=== PATIENT | male | born 1950 | race Caucasian/White ===

== ENCOUNTER 2017-02-03 21:39 | Inpatient (IN) | payer BC, MEDICARE ==
[~2017-02-03] VITALS: Ht 177.8 cm; Wt 90.7 kg
[2017-02-03 21:39] VITALS: BP 150/101
[2017-02-03 22:17] VITALS: BP 140/93
[2017-02-03] MEDS ORDERED: LISINOPRIL5 MG ORAL (23:04)
[2017-02-03] MEDS ORDERED: METOCLOPRAMIDE H5 M1 ORAL (23:04)
[2017-02-03] MEDS ORDERED: ASPIR 8181 MG ORAL (23:04)
[2017-02-03] MEDS ORDERED: KEPPRA500 M4 ORAL (23:04)
[2017-02-03] MEDS ORDERED: LOPRESSOR5 MG/5 ML IV (23:04)
[2017-02-03] MEDS ORDERED: HUMULIN R100 UNIT/1 SUBQ (23:04)
[2017-02-03] MEDS ORDERED: ATORVASTATIN CA10 MG ORAL (23:04)
[2017-02-03 23:10] LABS: BASOPHILS % (AUTO) 0.9 % (0.0-2.0); EOSINOPHILS % (AUTO) 0.2 % (0.0-3.0); LYMPHOCYTES % (AUTO) 23.9 % (20.0-45.0); MEAN CORPUSCULAR HEMOGLOBIN 33.3 PG (27.0-31.0); MEAN CORPUSCULAR HGB CONC 35.8 G/DL (32.0-36.0); MEAN CORPUSCULAR VOLUME 93 FL (80-99); MEAN PLATELET VOLUME 7.9 FL (6.5-10.1); MONOCYTES % (AUTO) 5.9 % (1.0-10.0); NEUTROPHILS % (AUTO) 69.2 % (45.0-75.0); PLATELET COUNT 191 K/UL (150-450); RED BLOOD COUNT 4.69 M/UL (4.70-6.10); RED CELL DISTRIBUTION WIDTH 11.5 % (11.6-14.8); WHITE BLOOD COUNT 11.7 K/UL (4.8-10.8)
[2017-02-03 23:25] LABS: TROPONIN I < 0.30 ng/mL (<=0.30)
[2017-02-03 23:30] LABS: ALANINE AMINOTRANSFERASE 25 U/L (3-41); ALBUMIN/GLOBULIN RATIO 1.7 (1.0-2.7); ANION GAP 14 (5-15); ASPARTATE AMINO TRANSFERASE 23 U/L (5-40); CALCIUM 9.5 mg/dL (8.6-10.2); CARBON DIOXIDE 25 mEQ/L (20-30); CHLORIDE 98 mEQ/L (98-107); CREATININE 0.8 mg/dL (0.7-1.2); GLOMERULAR FILTRATION RATE > 60 mL/min (>60); HEMOLYSIS 13; POTASSIUM 4.3 mEQ/L (3.4-4.9); SODIUM 137 mEQ/L (135-145); TOTAL PROTEIN 7.2 g/dL (6.6-8.7)
[2017-02-03 23:39] LABS: CKMB 4.1 ng/mL (< 6.7)
[2017-02-04] VITALS (7 sets, daily range): BP systolic 125–153; BP diastolic 78–100
--- NOTE | 2017-02-04 00:11 | Emergency Room Report ---
History of Present Illness General Chief Complaint: Dizziness Source: Patient Present Illness HPI Is a 66-year-old male with multiple medical problems including diabetes, hypertension and previous CVA. He presents with chief complaint of dizziness. Onset was around 5 6 PM. Said that he felt lightheaded and passed out. Was diaphoretic. Has nausea and one episode vomiting. No diarrhea. No slurred speech. No focal deficit. No chest pain. He called 911. Little better now. Allergies: Coded Allergies: PENICILLINS (Unverified Allergy, Unknown, 02/03/17) SULFA (SULFONAMIDE ANTIBIOTICS) (Unverified Allergy, Unknown, 02/03/17) Patient History Past Medical History: see triage record, old chart reviewed Past Surgical History: other Pertinent Family History: none Social History: Denies: smoking Immunizations: other Reviewed Nursing Documentation: PMH: Agreed, PSxH: Agreed Nursing Documentation-PMH Past Medical History: No History, Except For Hx Hypertension: Yes Hx Diabetes: Yes Hx Cerebrovascular Accident: Yes Hx Seizures: Yes Review of Systems Eye: Denies: eye pain, blurred vision ENT: Denies: ear pain, nose congestion, throat swelling Respiratory: Denies: cough, shortness of breath Cardiovascular: Denies: chest pain, palpitations Gastrointestinal: Denies: abdominal pain, diarrhea, nausea, vomiting Musculoskeletal: Denies: back pain, joint pain Skin: Denies: rash Neurological: Reports: dizziness, Denies: headache, numbness Endocrine: Denies: increased thirst, increased urine Hematologic/Lymphatic: Denies: easy bruising All Other Systems: negative except mentioned in HPI Physical Exam Vital Signs Date Time Temp Pulse Resp B/P (MAP) Pulse Ox O2 Delivery O2 Flow Rate FiO2 02/03/17 21:32 98.4 95 16 150/101 100 Room Air vitals unremarkable except for high blood pressure Sp02 EP Interpretation: reviewed, normal General Appearance: well appearing, no apparent distress, alert Head: normocephalic, atraumatic Eyes: bilateral eye PERRL, bilateral eye EOMI ENT: hearing grossly normal, normal pharynx Neck: full range of motion, supple, no meningismus Respiratory: chest non-tender, lungs clear, normal breath sounds Cardiovascular #1: regular rate, rhythm, no murmur Gastrointestinal: normal bowel sounds, non tender, no mass, no organomegaly, no bruit, non-distended Musculoskeletal: back normal, normal range of motion Neurologic: alert, oriented x3 Psychiatric: mood/affect normal Skin: warm/dry Medical Decision Making Diagnostic Impression: Primary Impression: Dizziness of unknown cause Additional Impression: Hyperglycemia due to type 2 diabetes mellitus Qualified Codes: E11.65 - Type 2 diabetes mellitus with hyperglycemia ER Course Patient presents with weakness and dizziness. Differential includes TIA/CVA, cardiogenic source to name a few. He's fell better but still feeling dizzy. Will admit for monitoring and possible MRI in the morning. I discussed the case with Dr. Bustos. Laboratory Tests Test 02/03/17 22:45 White Blood Count 11.7 K/UL (4.8-10.8) H Red Blood Count 4.69 M/UL (4.70-6.10) L Hemoglobin 15.6 G/DL (14.2-18.0) Hematocrit 43.6 % (42.0-52.0) Mean Corpuscular Volume 93 FL (80-99) Mean Corpuscular Hemoglobin 33.3 PG (27.0-31.0) H Mean Corpuscular Hemoglobin Concent 35.8 G/DL (32.0-36.0) Red Cell Distribution Width 11.5 % (11.6-14.8) L Platelet Count 191 K/UL (150-450) Mean Platelet Volume 7.9 FL (6.5-10.1) Neutrophils (%) (Auto) 69.2 % (45.0-75.0) Lymphocytes (%) (Auto) 23.9 % (20.0-45.0) Monocytes (%) (Auto) 5.9 % (1.0-10.0) Eosinophils (%) (Auto) 0.2 % (0.0-3.0) Basophils (%) (Auto) 0.9 % (0.0-2.0) Sodium Level 137 mEQ/L (135-145) Potassium Level 4.3 mEQ/L (3.4-4.9) Chloride Level 98 mEQ/L (98-107) Carbon Dioxide Level 25 mEQ/L (20-30) Anion Gap 14 (5-15) Blood Urea Nitrogen 12 mg/dL (7-23) Creatinine 0.8 mg/dL (0.7-1.2) Estimat Glomerular Filtration Rate > 60 mL/min (>60) Glucose Level 294 mg/dL (74-106) H Calcium Level 9.5 mg/dL (8.6-10.2) Total Bilirubin 0.4 mg/dL (0.0-1.2) Aspartate Amino Transf (AST/SGOT) 23 U/L (5-40) Alanine Aminotransferase (ALT/SGPT) 25 U/L (3-41) Alkaline Phosphatase 50 U/L (40-129) Total Creatine Kinase 83 U/L (38-174) Creatine Kinase MB 4.1 ng/mL (< 6.7) Creatine Kinase MB Relative Index 4.9 Troponin I < 0.30 ng/mL (<=0.30) Total Protein 7.2 g/dL (6.6-8.7) Albumin 4.6 g/dL (3.5-5.2) Globulin 2.6 g/dL Albumin/Globulin Ratio 1.7 (1.0-2.7) Lab Results Impression labs with hyperglycemia EKG Diagnostic Results EKG Time: 00:10 Rate: normal Rhythm: NSR ST Segments: no acute changes Rhythm Strip Diag. Results Rhythm Strip Time: 00:10 EP Interpretation: yes Rate: 86 Rhythm: NSR, no PVC's, no ectopy Chest X-Ray Diagnostic Results Chest X-Ray Diagnostic Results : Chest X-Ray Ordered: Yes # of Views/Limited/Complete: 1 View Indication: Shortness of Breath EP Interpretation: Yes Interpretation: no consolidation, no effusion, no pneumothorax Impression: No acute disease Interpreting ER Provider: Electronically signed by Killian Tao MD CT/MRI/US Diagnostic Results CT/MRI/US Diagnostic Results : Imaging Test Ordered: CT head Impression read by radiologist. Atrophy. Last Vital Signs Date Time Temp Pulse Resp B/P (MAP) Pulse Ox O2 Delivery O2 Flow Rate FiO2 02/03/17 22:17 80 140/93 20 Room Air 02/03/17 21:39 98.4 16 Status: improved Disposition: ADMITTED INPATIENT Condition: Serious KILLIAN TAO M.D. Feb 04, 2017 00:11
[2017-02-04] MEDS ORDERED: Morphine Sulfate 2mg/ml Inj IVP PRN (07:00)
[2017-02-04] MEDS ORDERED: LORazepam Inj 2mg/ml 1ml IV PRN (07:00)
[2017-02-04] MEDS ORDERED: Miralax 17gm pkt ORAL PRN (07:00)
[2017-02-04] MEDS ORDERED: Nitroglycerin Subl 0.4mg tab (Bottle Of 25) SL PRN (07:00)
[2017-02-04] MEDS ORDERED: DuoNeb 0.5-3(2.5)mg/3ml neb HHN PRN (07:00)
[2017-02-04] MEDS ORDERED: Mylanta II UD 30ml ORAL PRN (07:00)
[2017-02-04] MEDS: Heparin 5000 units/ml inj SUBQ SCH ×2 (09:00→21:17)
[2017-02-04] MEDS ORDERED: Lisinopril 2.5mg tab ORAL SCH (09:00)
[2017-02-04] MEDS: Aspirin EC 81mg tab ORAL SCH (09:29)
[2017-02-04 09:39] LABS: BASOPHILS % (AUTO) 0.8 % (0.0-2.0); EOSINOPHILS % (AUTO) 0.3 % (0.0-3.0); LYMPHOCYTES % (AUTO) 31.7 % (20.0-45.0); MEAN CORPUSCULAR HGB CONC 34.3 G/DL (32.0-36.0); MEAN CORPUSCULAR VOLUME 93 FL (80-99); MEAN PLATELET VOLUME 8.1 FL (6.5-10.1); MONOCYTES % (AUTO) 8.2 % (1.0-10.0); PLATELET COUNT 203 K/UL (150-450); RED BLOOD COUNT 4.58 M/UL (4.70-6.10); RED CELL DISTRIBUTION WIDTH 11.4 % (11.6-14.8); WHITE BLOOD COUNT 8.9 K/UL (4.8-10.8)
[2017-02-04 09:48] LABS: INR 1.1 (0.9-1.1); PROTHROMBIN TIME 11.1 SEC (9.30-11.50)
--- NOTE | 2017-02-04 09:50 | Diagnostic Imaging Report ---
Indication: Altered mental status Technique: Contiguous 5 mm thick transaxial imaging of the head obtained in a Siemens Sensation [address] scanner. Soft tissue and bone windows generated. Total Dose length Product (DLP): [address] Dose Index Volume (CTDIvol): 70.38, 0.15 mGy Comparison: none Findings: There is moderate prominence of the ventricles, basal cisterns, and cerebral sulci consistent with atrophy. Ventriculomegaly appears somewhat disproportionate. This could be due to central atrophy. Possibility of communicating hydrocephalus is not excluded. Moderate, nonspecific, white matter hypoattenuation is noted throughout the brain consistent with chronic small vessel disease. There is no midline shift, edema, acute hemorrhage, mass effect, or abnormal extra-axial fluid collections. Bones and extra osseous soft tissues are unremarkable. Impression: No acute intracranial bleed, mass effect or edema. Moderate atrophy of the brain. Ventriculomegaly is disproportionate. Communicating hydrocephalus not excluded. Evidence of chronic small vessel disease involving white matter tracts. The CT scanner at [facility] is accredited by the [employer] and the scans are performed using dose optimization techniques as appropriate to a performed exam including Automatic Exposure control.
[2017-02-04 09:57] LABS: PSA TOTAL 1.1 ng/mL (< 4.5); THYROID STIMULATING HORMONE 0.855 uIU/mL (0.300-4.500)
[2017-02-04 10:09] LABS: ALANINE AMINOTRANSFERASE 21 U/L (3-41); ALBUMIN/GLOBULIN RATIO 1.7 (1.0-2.7); ANION GAP 12 (5-15); ASPARTATE AMINO TRANSFERASE 17 U/L (5-40); CALCIUM 9.7 mg/dL (8.6-10.2); CARBON DIOXIDE 27 mEQ/L (20-30); CHLORIDE 99 mEQ/L (98-107); CHOLESTEROL 77 mg/dL (< 200); CREATININE 0.7 mg/dL (0.7-1.2); GLOMERULAR FILTRATION RATE > 60 mL/min (>60); HEMOLYSIS 5; LDL CHOLESTEROL (CALC.) 21 mg/dL (60-99); POTASSIUM 4.2 mEQ/L (3.4-4.9); SODIUM 138 mEQ/L (135-145); TOTAL PROTEIN 6.7 g/dL (6.6-8.7)
--- NOTE | 2017-02-04 10:33 | Diagnostic Imaging Report ---
Indication: Chest pain Comparison: None A single view chest radiograph was obtained. Findings: Sternotomy noted. No definite infiltrate or pulmonary vascular congestion identified. The heart is enlarged. The aorta is mildly enlarged consistent with atherosclerotic vascular disease. The bones are osteopenic. Impression: No acute disease
--- NOTE | 2017-02-04 11:08 | Cardiology Progress Note ---
Assessment/Plan Assessment/Plan non syncopal fall gait do hsitory cad s/ p mi and cabg cva small vessel etiology seizure on keppra htn Goal less than 140 ventriculomegaly no syncope no loc check orthostatic vital consider neuro eval no sx to suggest chf no coronary syndrome bp control with med as need once orthstatis is excluded and one giat is better avodi strict bp control as my worsen his balbnce accutely [id number] Objective Last 24 Hour Vital Signs Date Time Temp Pulse Resp B/P (MAP) Pulse Ox O2 Delivery O2 Flow Rate FiO2 02/04/17 09:00 141/86 02/04/17 07:54 97.8 79 20 141/86 98 Room Air 02/04/17 04:00 80 02/04/17 04:00 97.2 90 20 151/100 96 Room Air 02/04/17 02:09 81 18 141/86 96 Room Air 02/04/17 01:50 97.9 81 18 141/86 96 Room Air 02/03/17 22:17 80 140/93 20 Room Air 02/03/17 21:39 98.4 16 150/101 100 Room Air 02/03/17 21:32 98.4 95 16 150/101 100 Room Air Laboratory Tests Test 02/03/17 22:45 02/04/17 09:25 White Blood Count 11.7 K/UL (4.8-10.8) H 8.9 K/UL (4.8-10.8) Red Blood Count 4.69 M/UL (4.70-6.10) L 4.58 M/UL (4.70-6.10) L Hemoglobin 15.6 G/DL (14.2-18.0) 14.7 G/DL (14.2-18.0) Hematocrit 43.6 % (42.0-52.0) 42.7 % (42.0-52.0) Mean Corpuscular Volume 93 FL (80-99) 93 FL (80-99) Mean Corpuscular Hemoglobin 33.3 PG (27.0-31.0) H 32.0 PG (27.0-31.0) H Mean Corpuscular Hemoglobin Concent 35.8 G/DL (32.0-36.0) 34.3 G/DL (32.0-36.0) Red Cell Distribution Width 11.5 % (11.6-14.8) L 11.4 % (11.6-14.8) L Platelet Count 191 K/UL (150-450) 203 K/UL (150-450) Mean Platelet Volume 7.9 FL (6.5-10.1) 8.1 FL (6.5-10.1) Neutrophils (%) (Auto) 69.2 % (45.0-75.0) 59.0 % (45.0-75.0) Lymphocytes (%) (Auto) 23.9 % (20.0-45.0) 31.7 % (20.0-45.0) Monocytes (%) (Auto) 5.9 % (1.0-10.0) 8.2 % (1.0-10.0) Eosinophils (%) (Auto) 0.2 % (0.0-3.0) 0.3 % (0.0-3.0) Basophils (%) (Auto) 0.9 % (0.0-2.0) 0.8 % (0.0-2.0) Sodium Level 137 mEQ/L (135-145) 138 mEQ/L (135-145) Potassium Level 4.3 mEQ/L (3.4-4.9) 4.2 mEQ/L (3.4-4.9) Chloride Level 98 mEQ/L (98-107) 99 mEQ/L (98-107) Carbon Dioxide Level 25 mEQ/L (20-30) 27 mEQ/L (20-30) Anion Gap 14 (5-15) 12 (5-15) Blood Urea Nitrogen 12 mg/dL (7-23) 10 mg/dL (7-23) Creatinine 0.8 mg/dL (0.7-1.2) 0.7 mg/dL (0.7-1.2) Estimat Glomerular Filtration Rate > 60 mL/min (>60) > 60 mL/min (>60) Glucose Level 294 mg/dL (74-106) H 221 mg/dL (74-106) H Calcium Level 9.5 mg/dL (8.6-10.2) 9.7 mg/dL (8.6-10.2) Total Bilirubin 0.4 mg/dL (0.0-1.2) 0.6 mg/dL (0.0-1.2) Aspartate Amino Transf (AST/SGOT) 23 U/L (5-40) 17 U/L (5-40) Alanine Aminotransferase (ALT/SGPT) 25 U/L (3-41) 21 U/L (3-41) Alkaline Phosphatase 50 U/L (40-129) 46 U/L (40-129) Total Creatine Kinase 83 U/L (38-174) Creatine Kinase MB 4.1 ng/mL (< 6.7) Creatine Kinase MB Relative Index 4.9 Troponin I < 0.30 ng/mL (<=0.30) Total Protein 7.2 g/dL (6.6-8.7) 6.7 g/dL (6.6-8.7) Albumin 4.6 g/dL (3.5-5.2) 4.3 g/dL (3.5-5.2) Globulin 2.6 g/dL 2.4 g/dL Albumin/Globulin Ratio 1.7 (1.0-2.7) 1.7 (1.0-2.7) Prothrombin Time 11.1 SEC (9.30-11.50) Prothromb Time International Ratio 1.1 (0.9-1.1) Activated Partial Thromboplast Time 25 SEC (23-33) Triglycerides Level 91 mg/dL (< 150) Cholesterol Level 77 mg/dL (< 200) LDL Cholesterol 21 mg/dL (60-99) L HDL Cholesterol 38 mg/dL (> 60) Cholesterol/HDL Ratio 2.0 (3.3-4.4) L Prostate Specific Antigen 1.1 ng/mL (< 4.5) Thyroid Stimulating Hormone (TSH) 0.855 uIU/mL (0.300-4.500) JUAN BRUNNER Feb 04, 2017 11:08
--- NOTE | 2017-02-04 11:25 | Consultation ---
History of Present Illness General Date patient seen: Feb 04, 2017 Time patient seen: 11:21 Chief Complaint: Dizziness Referring physician: Akash Present Illness HPI 66 yo male with hx of CVA in August 2016. Admitted for fall and dizziness workup. In ER last night, reportedly unable to urinate to provide a specimen. Able to go once on the floor 180 mL. Had residual of 300+ documented overnight (verbally to grab setter). Patient reports baseline voiding symptoms of nocturia and frequency. Not bothersome. Feels ok with how he voids in general. This AM patient voided another 275 mL at 0900. Allergies: Coded Allergies: PENICILLINS (Unverified Allergy, Unknown, 02/03/17) SULFA (SULFONAMIDE ANTIBIOTICS) (Unverified Allergy, Unknown, 02/03/17) Medication History Scheduled Aspirin* (Aspir 81*), 81 MG ORAL DAILY, (Reported) Atorvastatin Calcium* (Lipitor*), 10 MG ORAL BEDTIME, (Reported) Levetiracetam (Keppra), 500 MG ORAL EVERY 12 HOURS, (Reported) Lisinopril (Lisinopril*), 5 MG ORAL DAILY, (Reported) Metoclopramide Hcl* (Metoclopramide Hcl*), 5 MG ORAL EVERY 6 HOURS, (Reported) Miscellaneous Medications Insulin Regular, Human (Humulin R), 0 SUBQ, (Reported) Metoprolol Tartrate* (Lopressor*), 5 MG IV, (Reported) Patient History History Provided By: Patient Healthcare decision maker Resuscitation status Full Code Advanced Directive on File Past Medical/Surgical History Past Medical/Surgical History: (1) Dizziness of unknown cause Review of Systems Constitutional: Denies: no symptoms, see HPI, chills, sweats, fever, malaise, weakness, other Eye: Denies: no symptoms, see HPI, eye pain, blurred vision, tearing, double vision, nose pain, nose congestion, acuity changes, discharge, other ENT: Denies: no symptoms, see HPI, ear pain, ear discharge, nose pain, nose congestion, throat pain, throat swelling, mouth pain, hearing loss, nasal discharge, other Respiratory: Denies: no symptoms, see HPI, cough, orthopnea, shortness of breath, stridor, wheezing, COTO, sputum, other Cardiovascular: Denies: no symptoms, see HPI, chest pain, edema, palpitations, syncope, PND, other Gastrointestinal: Denies: no symptoms, see HPI, abdominal pain, constipation, diarrhea, nausea, vomiting, melena, hematemesis, other Genitourinary: Denies: no symptoms, see HPI, discharge, dysuria, frequency, hematuria, pain, retention, incontinence, urgency, vag bleed/dc, other Musculoskeletal: Denies: no symptoms, see HPI, back pain, gout, joint pain, joint swelling, muscle pain, muscle stiffness, other Skin: Denies: no symptoms, see HPI, rash, change in color, change in hair/nails , dryness, lesions, other Psychiatric: Denies: no symptoms, see HPI, prior hx, anxiety, depressed feelings, emotional problems, SI, HI, hallucinations, other Neurological: Reports: dizziness Endocrine: Denies: no symptoms, see HPI, excessive sweating, flushing, intolerance to temperature, increased thirst, increased urine, unexplained weight loss, other Hematologic/Lymphatic: Denies: no symptoms, see HPI, anemia, blood clots, easy bleeding, easy bruising, swollen glands, diathesis, other Physical Exam General Appearance: no apparent distress, confused Respiratory/Chest: lungs clear Abdomen: soft Skin Exam: warm/dry Neurologic: alert, responsive Last 24 Hour Vital Signs Date Time Temp Pulse Resp B/P (MAP) Pulse Ox O2 Delivery O2 Flow Rate FiO2 02/04/17 09:00 141/86 02/04/17 07:54 97.8 79 20 141/86 98 Room Air 02/04/17 07:50 75 16 Room Air 21 02/04/17 04:00 80 02/04/17 04:00 97.2 90 20 151/100 96 Room Air 02/04/17 02:09 81 18 141/86 96 Room Air 02/04/17 01:50 97.9 81 18 141/86 96 Room Air 02/03/17 22:17 80 140/93 20 Room Air 02/03/17 21:39 98.4 16 150/101 100 Room Air 02/03/17 21:32 98.4 95 16 150/101 100 Room Air Intake and Output 02/04/17 02/05/17 19:00 07:00 Output Total 275 ml Balance -275 ml Output Urine Total 275 ml Laboratory Tests Test 02/03/17 22:45 02/04/17 09:25 White Blood Count 11.7 K/UL (4.8-10.8) H 8.9 K/UL (4.8-10.8) Red Blood Count 4.69 M/UL (4.70-6.10) L 4.58 M/UL (4.70-6.10) L Hemoglobin 15.6 G/DL (14.2-18.0) 14.7 G/DL (14.2-18.0) Hematocrit 43.6 % (42.0-52.0) 42.7 % (42.0-52.0) Mean Corpuscular Volume 93 FL (80-99) 93 FL (80-99) Mean Corpuscular Hemoglobin 33.3 PG (27.0-31.0) H 32.0 PG (27.0-31.0) H Mean Corpuscular Hemoglobin Concent 35.8 G/DL (32.0-36.0) 34.3 G/DL (32.0-36.0) Red Cell Distribution Width 11.5 % (11.6-14.8) L 11.4 % (11.6-14.8) L Platelet Count 191 K/UL (150-450) 203 K/UL (150-450) Mean Platelet Volume 7.9 FL (6.5-10.1) 8.1 FL (6.5-10.1) Neutrophils (%) (Auto) 69.2 % (45.0-75.0) 59.0 % (45.0-75.0) Lymphocytes (%) (Auto) 23.9 % (20.0-45.0) 31.7 % (20.0-45.0) Monocytes (%) (Auto) 5.9 % (1.0-10.0) 8.2 % (1.0-10.0) Eosinophils (%) (Auto) 0.2 % (0.0-3.0) 0.3 % (0.0-3.0) Basophils (%) (Auto) 0.9 % (0.0-2.0) 0.8 % (0.0-2.0) Sodium Level 137 mEQ/L (135-145) 138 mEQ/L (135-145) Potassium Level 4.3 mEQ/L (3.4-4.9) 4.2 mEQ/L (3.4-4.9) Chloride Level 98 mEQ/L (98-107) 99 mEQ/L (98-107) Carbon Dioxide Level 25 mEQ/L (20-30) 27 mEQ/L (20-30) Anion Gap 14 (5-15) 12 (5-15) Blood Urea Nitrogen 12 mg/dL (7-23) 10 mg/dL (7-23) Creatinine 0.8 mg/dL (0.7-1.2) 0.7 mg/dL (0.7-1.2) Estimat Glomerular Filtration Rate > 60 mL/min (>60) > 60 mL/min (>60) Glucose Level 294 mg/dL (74-106) H 221 mg/dL (74-106) H Calcium Level 9.5 mg/dL (8.6-10.2) 9.7 mg/dL (8.6-10.2) Total Bilirubin 0.4 mg/dL (0.0-1.2) 0.6 mg/dL (0.0-1.2) Aspartate Amino Transf (AST/SGOT) 23 U/L (5-40) 17 U/L (5-40) Alanine Aminotransferase (ALT/SGPT) 25 U/L (3-41) 21 U/L (3-41) Alkaline Phosphatase 50 U/L (40-129) 46 U/L (40-129) Total Creatine Kinase 83 U/L (38-174) Creatine Kinase MB 4.1 ng/mL (< 6.7) Creatine Kinase MB Relative Index 4.9 Troponin I < 0.30 ng/mL (<=0.30) Total Protein 7.2 g/dL (6.6-8.7) 6.7 g/dL (6.6-8.7) Albumin 4.6 g/dL (3.5-5.2) 4.3 g/dL (3.5-5.2) Globulin 2.6 g/dL 2.4 g/dL Albumin/Globulin Ratio 1.7 (1.0-2.7) 1.7 (1.0-2.7) Prothrombin Time 11.1 SEC (9.30-11.50) Prothromb Time International Ratio 1.1 (0.9-1.1) Activated Partial Thromboplast Time 25 SEC (23-33) Triglycerides Level 91 mg/dL (< 150) Cholesterol Level 77 mg/dL (< 200) LDL Cholesterol 21 mg/dL (60-99) L HDL Cholesterol 38 mg/dL (> 60) Cholesterol/HDL Ratio 2.0 (3.3-4.4) L Prostate Specific Antigen 1.1 ng/mL (< 4.5) Thyroid Stimulating Hormone (TSH) 0.855 uIU/mL (0.300-4.500) Height (Feet): 5 Height (Inches): 10.00 Weight (Pounds): 200 Medications Current Medications Medications (Trade) Dose Ordered Sig/Mitch Route PRN Reason Start Time Stop Time Status Last Admin Dose Admin Al Hydroxide/Mg Hydroxide (Mylanta II) 30 ml Q6H PRN ORAL dyspepsia 02/04/17 07:00 03/06/17 06:59 Albuterol/ Ipratropium (DuoNeb 0.5-3(2.5)mg/3ml) 3 ml EVERY 4 HOURS PRN HHN Shortness of Breath 02/04/17 07:00 02/09/17 06:59 Aspirin (Ecotrin) 81 mg DAILY ORAL 02/04/17 09:00 03/06/17 08:59 02/04/17 09:29 Atorvastatin Calcium (Lipitor) 10 mg BEDTIME ORAL 02/04/17 21:00 03/06/17 20:59 Clonidine HCl (Catapres) 0.1 mg Q4H PRN ORAL For High Blood Pressure 02/04/17 07:00 03/06/17 06:59 Dextrose (Dextrose 50%) STAT PRN IV Hypoglycemia 02/04/17 07:00 03/06/17 06:59 Heparin Sodium (Porcine) (Heparin 5000 units/ml) 5,000 units EVERY 12 HOURS SUBQ 02/04/17 09:00 03/06/17 08:59 02/04/17 09:00 Levetiracetam (Keppra) 500 mg EVERY 12 HOURS ORAL 02/04/17 09:00 03/06/17 08:59 02/04/17 09:00 Lisinopril (Zestril) 5 mg BID ORAL 02/04/17 18:00 03/06/17 08:59 Lorazepam (Ativan 2mg/ml 1ml) 0.5 mg Q4H PRN IV For Anxiety 02/04/17 07:00 02/11/17 06:59 Morphine Sulfate (Morphine Sulfate) 1 mg EVERY 4 HOURS PRN IVP For Pain 7-10 02/04/17 07:00 02/11/17 06:59 Nitroglycerin (Ntg) 0.4 mg Q5M X 3 DOSES PRN SL Prn Chest Pain 02/04/17 07:00 03/06/17 06:59 Ondansetron HCl (Zofran) 4 mg Q6H PRN IVP Nausea & Vomiting 02/04/17 07:00 03/06/17 06:59 Polyethylene Glycol (Miralax) 17 gm HSPRN PRN ORAL Constipation 02/04/17 07:00 03/06/17 06:59 Temazepam (Restoril) 15 mg HSPRN PRN ORAL Insomnia 02/04/17 07:00 02/11/17 06:59 Assessment/Plan Status: stable Assessment/Plan 66 yo male with dizziness and hx of CVA in August 2016. Although patient unable to void in ER, reported voiding at 2200 before coming to hospital, then voided when initially on floor last night 180 mL. Another 275 mL this AM. Has mild baseline lower urinary tract symptoms that are not significantly bothersome. Voiding well. Not likely neurogenic bladder from recent CVA. Likely baseline BPH symptoms which given low bother factor do not warrant more intervention. 1. recommend outpatient follow up with urologist at elective time. Alexei Mirza M.D. Feb 04, 2017 11:25
--- NOTE | 2017-02-04 11:40 | Diagnostic Imaging Report ---
APPROVED REPORT CPT Code: 10937 Vascular Symptoms Dizziness and Vertigo CVA/TIA: CAROTID (BILATERAL) - Imaging reveals no significant plaque within the right and left extracranial carotid arteries. The Doppler spectral flow analysis is within normal limits throughout the extracranial carotid arteries bilaterally. VERTEBRAL- The vertebral arteries are within normal limits.
--- NOTE | 2017-02-04 12:53 | History and Physical ---
History of Present Illness General Date patient seen: Feb 04, 2017 Reason for Hospitalization: Dizziness Present Illness HPI 66-year-old male with pmhx of diabetes, hypertension and previous CVA in August of this year presented with chief complaint of dizziness around 5 6 PM yesterday. Said that he felt lightheaded when he was trying to use his cane and trying to go over two steps. No slurred speech. No focal deficit. No chest pain. He is admitted to telemetry for further evaluation. Allergies: Coded Allergies: PENICILLINS (Unverified Allergy, Unknown, 02/03/17) SULFA (SULFONAMIDE ANTIBIOTICS) (Unverified Allergy, Unknown, 02/03/17) Medication History Scheduled Aspirin* (Aspir 81*), 81 MG ORAL DAILY, (Reported) Atorvastatin Calcium* (Lipitor*), 10 MG ORAL BEDTIME, (Reported) Levetiracetam (Keppra), 500 MG ORAL EVERY 12 HOURS, (Reported) Lisinopril (Lisinopril*), 5 MG ORAL DAILY, (Reported) Metoclopramide Hcl* (Metoclopramide Hcl*), 5 MG ORAL EVERY 6 HOURS, (Reported) Miscellaneous Medications Insulin Regular, Human (Humulin R), 0 SUBQ, (Reported) Metoprolol Tartrate* (Lopressor*), 5 MG IV, (Reported) Patient History Healthcare decision maker Resuscitation status Full Code Advanced Directive on File Past Medical/Surgical History Past Medical/Surgical History: (1) History of CVA (cerebrovascular accident) (2) Diabetes mellitus Review of Systems All Other Systems: negative except mentioned in HPI Physical Exam General Appearance: WD/WN, no apparent distress Lines, tubes and drains: peripheral HEENT: normocephalic, atraumatic Neck: non-tender, normal alignment Respiratory/Chest: chest wall non-tender, lungs clear Breasts: no masses Cardiovascular/Chest: normal peripheral pulses Abdomen: normal bowel sounds, non tender, hyperactive bowel sounds Genitourinary/Rectal: normal genital exam, normal rectal exam Extremities: normal range of motion, non-tender Skin Exam: normal pigmentation 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 Last 24 Hour Vital Signs Date Time Temp Pulse Resp B/P (MAP) Pulse Ox O2 Delivery O2 Flow Rate FiO2 02/04/17 11:35 02/04/17 11:30 139/98 02/04/17 11:25 153/94 02/04/17 09:00 141/86 02/04/17 08:00 85 02/04/17 07:54 97.8 79 20 141/86 98 Room Air 02/04/17 07:50 75 16 Room Air 21 02/04/17 04:00 80 02/04/17 04:00 97.2 90 20 151/100 96 Room Air 02/04/17 02:09 81 18 141/86 96 Room Air 02/04/17 01:50 97.9 81 18 141/86 96 Room Air 02/03/17 22:17 80 140/93 20 Room Air 02/03/17 21:39 98.4 16 150/101 100 Room Air 02/03/17 21:32 98.4 95 16 150/101 100 Room Air Intake and Output 02/04/17 02/05/17 19:00 07:00 Output Total 275 ml Balance -275 ml Output Urine Total 275 ml Laboratory Tests Test 02/03/17 22:45 02/04/17 09:25 White Blood Count 11.7 K/UL (4.8-10.8) H 8.9 K/UL (4.8-10.8) Red Blood Count 4.69 M/UL (4.70-6.10) L 4.58 M/UL (4.70-6.10) L Hemoglobin 15.6 G/DL (14.2-18.0) 14.7 G/DL (14.2-18.0) Hematocrit 43.6 % (42.0-52.0) 42.7 % (42.0-52.0) Mean Corpuscular Volume 93 FL (80-99) 93 FL (80-99) Mean Corpuscular Hemoglobin 33.3 PG (27.0-31.0) H 32.0 PG (27.0-31.0) H Mean Corpuscular Hemoglobin Concent 35.8 G/DL (32.0-36.0) 34.3 G/DL (32.0-36.0) Red Cell Distribution Width 11.5 % (11.6-14.8) L 11.4 % (11.6-14.8) L Platelet Count 191 K/UL (150-450) 203 K/UL (150-450) Mean Platelet Volume 7.9 FL (6.5-10.1) 8.1 FL (6.5-10.1) Neutrophils (%) (Auto) 69.2 % (45.0-75.0) 59.0 % (45.0-75.0) Lymphocytes (%) (Auto) 23.9 % (20.0-45.0) 31.7 % (20.0-45.0) Monocytes (%) (Auto) 5.9 % (1.0-10.0) 8.2 % (1.0-10.0) Eosinophils (%) (Auto) 0.2 % (0.0-3.0) 0.3 % (0.0-3.0) Basophils (%) (Auto) 0.9 % (0.0-2.0) 0.8 % (0.0-2.0) Sodium Level 137 mEQ/L (135-145) 138 mEQ/L (135-145) Potassium Level 4.3 mEQ/L (3.4-4.9) 4.2 mEQ/L (3.4-4.9) Chloride Level 98 mEQ/L (98-107) 99 mEQ/L (98-107) Carbon Dioxide Level 25 mEQ/L (20-30) 27 mEQ/L (20-30) Anion Gap 14 (5-15) 12 (5-15) Blood Urea Nitrogen 12 mg/dL (7-23) 10 mg/dL (7-23) Creatinine 0.8 mg/dL (0.7-1.2) 0.7 mg/dL (0.7-1.2) Estimat Glomerular Filtration Rate > 60 mL/min (>60) > 60 mL/min (>60) Glucose Level 294 mg/dL (74-106) H 221 mg/dL (74-106) H Calcium Level 9.5 mg/dL (8.6-10.2) 9.7 mg/dL (8.6-10.2) Total Bilirubin 0.4 mg/dL (0.0-1.2) 0.6 mg/dL (0.0-1.2) Aspartate Amino Transf (AST/SGOT) 23 U/L (5-40) 17 U/L (5-40) Alanine Aminotransferase (ALT/SGPT) 25 U/L (3-41) 21 U/L (3-41) Alkaline Phosphatase 50 U/L (40-129) 46 U/L (40-129) Total Creatine Kinase 83 U/L (38-174) Creatine Kinase MB 4.1 ng/mL (< 6.7) Creatine Kinase MB Relative Index 4.9 Troponin I < 0.30 ng/mL (<=0.30) Total Protein 7.2 g/dL (6.6-8.7) 6.7 g/dL (6.6-8.7) Albumin 4.6 g/dL (3.5-5.2) 4.3 g/dL (3.5-5.2) Globulin 2.6 g/dL 2.4 g/dL Albumin/Globulin Ratio 1.7 (1.0-2.7) 1.7 (1.0-2.7) Prothrombin Time 11.1 SEC (9.30-11.50) Prothromb Time International Ratio 1.1 (0.9-1.1) Activated Partial Thromboplast Time 25 SEC (23-33) Triglycerides Level 91 mg/dL (< 150) Cholesterol Level 77 mg/dL (< 200) LDL Cholesterol 21 mg/dL (60-99) L HDL Cholesterol 38 mg/dL (> 60) Cholesterol/HDL Ratio 2.0 (3.3-4.4) L Prostate Specific Antigen 1.1 ng/mL (< 4.5) Thyroid Stimulating Hormone (TSH) 0.855 uIU/mL (0.300-4.500) Height (Feet): 5 Height (Inches): 10.00 Weight (Pounds): 200 Medications Current Medications Medications (Trade) Dose Ordered Sig/Mitch Route PRN Reason Start Time Stop Time Status Last Admin Dose Admin Al Hydroxide/Mg Hydroxide (Mylanta II) 30 ml Q6H PRN ORAL dyspepsia 02/04/17 07:00 03/06/17 06:59 Albuterol/ Ipratropium (DuoNeb 0.5-3(2.5)mg/3ml) 3 ml EVERY 4 HOURS PRN HHN Shortness of Breath 02/04/17 07:00 02/09/17 06:59 Aspirin (Ecotrin) 81 mg DAILY ORAL 02/04/17 09:00 03/06/17 08:59 02/04/17 09:29 Atorvastatin Calcium (Lipitor) 10 mg BEDTIME ORAL 02/04/17 21:00 03/06/17 20:59 Clonidine HCl (Catapres) 0.1 mg Q4H PRN ORAL For High Blood Pressure 02/04/17 07:00 03/06/17 06:59 Dextrose (Dextrose 50%) STAT PRN IV Hypoglycemia 02/04/17 07:00 03/06/17 06:59 Heparin Sodium (Porcine) (Heparin 5000 units/ml) 5,000 units EVERY 12 HOURS SUBQ 02/04/17 09:00 03/06/17 08:59 02/04/17 09:00 Levetiracetam (Keppra) 500 mg EVERY 12 HOURS ORAL 02/04/17 09:00 03/06/17 08:59 02/04/17 09:00 Lisinopril (Zestril) 5 mg BID ORAL 02/04/17 18:00 03/06/17 08:59 Lorazepam (Ativan 2mg/ml 1ml) 0.5 mg Q4H PRN IV For Anxiety 02/04/17 07:00 02/11/17 06:59 Morphine Sulfate (Morphine Sulfate) 1 mg EVERY 4 HOURS PRN IVP For Pain 7-10 02/04/17 07:00 02/11/17 06:59 Nitroglycerin (Ntg) 0.4 mg Q5M X 3 DOSES PRN SL Prn Chest Pain 02/04/17 07:00 03/06/17 06:59 Ondansetron HCl (Zofran) 4 mg Q6H PRN IVP Nausea & Vomiting 02/04/17 07:00 03/06/17 06:59 Polyethylene Glycol (Miralax) 17 gm HSPRN PRN ORAL Constipation 02/04/17 07:00 03/06/17 06:59 Temazepam (Restoril) 15 mg HSPRN PRN ORAL Insomnia 02/04/17 07:00 02/11/17 06:59 Assessment/Plan Problem List: (1) Acute encephalopathy ICD Codes: G93.40 - Encephalopathy, unspecified SNOMED: 0971993 (2) Dizziness of unknown cause ICD Codes: R42 - Dizziness and giddiness SNOMED: 026216764 (3) Diabetes mellitus ICD Codes: E11.9 - Type 2 diabetes mellitus without complications SNOMED: 16521377 (4) History of CVA (cerebrovascular accident) ICD Codes: Z86.73 - Personal history of transient ischemic attack (TIA), and cerebral infarction without residual deficits SNOMED: 487079309 (5) History of hypertension ICD Codes: Z86.79 - Personal history of other diseases of the circulatory system SNOMED: 057468989 Assessment/Plan telemetry monitoring Echocardiogram cardio and neuro evaluation monitor bp and pulse pt/ot sliding scale EB MONCADA Feb 04, 2017 12:53
--- NOTE | 2017-02-04 13:37 | Cardiology Report ---
APPROVED REPORT EXAM: Two-dimensional and M-mode echocardiogram with Doppler and color Doppler. INDICATION LV function M-Mode DIMENSIONS IVSd1.2 (0.7-1.1cm)Left Atrium (MM)5.0 (1.6-4.0cm) LVDd5.0 (3.5-5.6cm)Aortic Root3.4 (2.0-3.7cm) PWd1.0 (0.7-1.1cm)Aortic Cusp Exc.2.2 (1.5-2.0cm) IVSs1.6 cm LVDs3.5 (2.5-4.0cm) PWs1.9 cm Technically difficult study due to poor apical windows. Normal left ventricular chamber size, systolic function and wall motion to extent visualized. Distal segments and apex not well visualized. Left ventricular ejection fraction estimated to be 55-60 %. Study quality precludes accurate assessment of regional wall motion. Mild left ventricular hypertrophy by 2-D. Anterior Echo-free space, may be due to pericardial fat or effusion. All other cardiac chamber sizes are within normal limits. Focal aortic valve sclerosis with adequate cusp excursion. Thickened mitral valve leaflets with normal excursion. Mitral annulus and aortic root calcification. Pulmonic valve not well visualized. Normal tricuspid valve structure. IVC at normal size with physiologic collapse. A color flow and spectral Doppler study was performed and revealed: Trace mitral regurgitation. Mitral diastolic velocities suggest reduced left ventricular relaxation c/w mild LV diastolic dysfunction (Grade I). Trace tricuspid regurgitation. Tricuspid systolic velocities suggests peak right ventricular systolic pressure of 18 mmHg Pulmonic regurgitation present.
--- NOTE | 2017-02-04 15:34 | Cardiology Report ---
APPROVED REPORT EKG Measurement Heart [id number] MD [id number] Normal sinus rhythm Normal ECG
[2017-02-04] MEDS: Lisinopril 2.5mg tab ORAL SCH (17:23)
--- NOTE | 2017-02-04 17:57 | Consultation ---
Consult Note Consult Note NEUROLOGY CONSULTATION: Full note dictated #[id number] 66 y/o, RH, CM with PH of HTN, DM, DL, CAD who was well until a few months ago when he suddenly became weak on the right side, had speech and language problems, and had problems with walking. He was taken to where he was found to have a stroke. He was stabilized there and then Tx to [facility] for rehab. He has improved significantly since then but still has memory, speech and language, and gait problems. He has also had some dizziness since he had the stroke. Yesterday he was walking and suddenly felt vertiginous and fell down. Since then he has had a few more episodes of vertigo when he turns in bed and when he changes his position. ON EXAM: Problems with recent and remote memory Fatiguable nystagmus when he looks to the right Right hemiparesis with right extensor plantar. Global areflexia. Rignt hemiparetic gait. IMPRESSION: 1. Possible acute vertigo most probably labyrinthine. 2. Sequelae of left brain stroke. 3. Old left MCA territory infarct and other DWM disease. REC: 1. MRI of brain. 2. Continue other Rx. 3. Valium 2 mg q HS. Jozef Leiva M.D., M.S.P.H. JOZEF LEIVA Feb 04, 2017 17:57
[2017-02-04 18:27] LABS: HEMOGLOBIN A1C 7.6 % (< 6.0)
--- NOTE | 2017-02-04 23:30 | Consultation ---
DATE OF CONSULTATION: 02/04/2017 CARDIOLOGY CONSULTATION CONSULTING PHYSICIAN: Tato Burgess M.D. REFERRING PHYSICIAN: Mary Bustos M.D. REASON FOR REFERRAL: Fall, questionable syncope. HISTORY OF PRESENT ILLNESS: This is an elderly gentleman who has a history of some neurological issues and coronary disease, status post coronary artery bypass grafting, had a stroke apparently back in August 2016 and has been getting physical therapy at [facility] on a regular basis. 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 Unfortunately, he lost his balance he thinks and he fell backward. He tried to keep himself from hitting the floor and he directed himself to the fall on the couch, which he did, but subsequently bounced off the couch and ended up hitting his head to the floor. He had some pain in the back of his head at that time. There was no loss of consciousness. The patient actually completely remembers the actual fall. He laid down. His family members were concerned about touching him and moving him, but after 5 minutes of lying down on the floor, he eventually got himself up, has laid down on the couch, but unfortunately lost his balance and fell off again. Finally, he presented to the emergency room here at [facility] and he has been admitted for further evaluation and therapy. He has no loss of consciousness during this episode. He has not had any chest pain or shortness of breath. There is no PND or orthopnea. He uses one pillow. There is usually minimal lightheadedness on standing that resolves after few seconds of him sitting and then getting up. There is no palpitations and no pain, pressure, tightness, or heaviness in his chest. He uses a walker to walk around. He was brought to the emergency room. He had several bouts of vomiting in the emergency room and he denies any numbness or paralysis in his arms or legs or his face. No blurred vision or double vision. PAST MEDICAL HISTORY: Positive for history of hypertension, diabetes mellitus, and coronary disease, for which he underwent coronary artery bypass grafting 10 years ago. 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 ALLERGIES: To sulfa, lidocaine, and penicillin. SOCIAL HISTORY: He does not smoke, but he rarely drinks alcoholic beverages. No drug use. He used to work as a plumber apprentice. He lives with his family. REVIEW OF SYSTEMS: Gastrointestinal: Nausea and vomiting as mentioned yesterday. No bloody or black stool. Genitourinary: Negative. Pulmonary: Negative. Constitutional: Negative. Neurologic: Except for balance issues, he denies any numbness or weakness or paralysis. No blurred vision or double vision. PHYSICAL EXAMINATION: GENERAL: Shows to be elderly gentleman, in no respiratory distress. Awake, alert, and responsive. VITAL SIGNS: Blood pressure is anywhere between 141/86 to 151/100 and temperature 97.2 degrees with a heart rate of 80. NECK: Supple. No jugular venous distention. No abdominojugular reflux noted. LUNGS: Clear to auscultation and percussion. CARDIAC: S1 is normal. S2 is normal. Regular rate and rhythm. No heaves, thrills, gallops, or rubs are noted. ABDOMEN: Soft and nontender. Positive bowel sounds. EXTREMITY: There is no clubbing, cyanosis, nor is there any edema. NEUROLOGIC: He is awake, alert, responsive, and he moves all four extremities. LABORATORY AND DIAGNOSTIC DATA: White count was 11.7, now down to 8.9, hemoglobin 14.7, and platelet count of 203,000. Sodium 138, potassium 4.2, chloride 99, bicarbonate 27, BUN of 10, creatinine 0.7, and glucose of 221. Liver function tests are normal. First set of cardiac enzymes from last night was negative. Total cholesterol is 77 with LDL of 21 and HDL of 38. TSH is 0.88. Prostate PSA of 1.1. Coags, INR 1.1 and a PTT of 22. IMAGING: He had a CT scan of his head, final report of which no acute intracranial bleed, mass effect, or edema. Moderate atrophy with ventriculomegaly is disproportionate communicating hydrocephalus is not excluded. Evidence of chronic ischemic changes are noted. Chest x-ray shows no acute processes. His electrocardiogram basically shows sinus rhythm, leftward axis, and nonspecific T-wave changes being documented. Compared to his prior EKG done at [facility] on 09/11/2016, the electrocardiogram is relatively unchanged. ASSESSMENT: 1. Non-syncopal fall. 2. Gait disorder history. 3. Coronary artery disease, status post myocardial infarction and bypass surgery. 4. Cerebrovascular accident, small vessel etiology per records. 5. Seizures, on Keppra. 6. Hypertension with a goal of less than 140. 7. Ventriculomegaly. PLAN: Dr. Bustos, this patient was seen in cardiac consultation. The patient's history does not suggest syncope. The patient did not have loss of consciousness. He will have orthostatic vitals checked. I doubt that this is a cardiac issue, or consider neurological evaluation. No symptoms to suggest congestive heart failure or coronary syndrome. Blood pressure control with medications as needed. Once orthostasis is excluded and once gait is better, avoid strict blood pressure control as it may worsen his balance acutely. Tato Burgess M.D. DR: SURJIT JOB#: [id number] CC:
[2017-02-05 00:04] VITALS: BP 139/75
--- NOTE | 2017-02-05 02:45 | Consultation ---
DATE OF CONSULTATION: 02/04/2017 NEUROLOGY CONSULTATION CONSULTING PHYSICIAN: Amador Leiva M.D. REQUESTING PHYSICIAN: Mary Bustos M.D. HISTORY: Mr. Blade Lara is a 66-year-old, right-handed, gentleman, who does have a past history of hypertension, diabetes mellitus, dyslipidemia, and coronary artery disease with a prior myocardial infarction, who was well until a few months ago when while he was at work and suddenly became weak on the right side. He also had speech and language problems and had problems with walking. He was rushed to the [facility] where he was found to have a stroke. He was treated appropriately for that stroke and then sent to [facility] for rehabilitation. He improved significantly and was then sent home. Since then, he has continued to have some memory problems, speech and language problems, and gait problems. He has also had some dizziness off and on. Yesterday, he was walking and suddenly felt vertiginous. As a result of that, he fell down. When he tried to get up, he again felt dizzy and needed help to get up. He continued to feel unwell and as a result of that, he was brought into the [facility] Emergency Room and has been admitted since then. Today, he feels much better, but does have some vertiginous episodes, when he turns in bed and when he changes his position from lying down to sitting up or from sitting up to standing or standing. He denies any increased weakness on one side or the other, numbness on one side or the other, problems with speech, problems with language, problems with vision, or any other neurological symptoms other than the dizzy feeling. PAST MEDICAL HISTORY: Significant for hypertension, diabetes mellitus, dyslipidemia, coronary artery disease - status post myocardial infarction, and cerebrovascular disease, status post stroke. FAMILY HISTORY: There is no family history of any neurological illnesses. PERSONAL HISTORY: Home: He lives at home with his and daughter. 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 Habits: He denies use of tobacco or illicit drugs. He does consume a few alcoholic drinks in a month. There is no history of any illicit drug use. PRESENT MEDICATIONS: Include atorvastatin, lisinopril, aspirin 81 mg daily, Keppra 500 mg every 12 hours, heparin for DVT prophylaxis, DuoNeb p.r.n., morphine p.r.n., MiraLax p.r.n., Zofran p.r.n., Ativan p.r.n., Restoril p.r.n., Mylanta p.r.n., nitroglycerin p.r.n., and clonidine p.r.n. PHYSICAL EXAMINATION: GENERAL: He is a well-developed, well-nourished, and pleasant gentleman, lying in bed, in no acute distress. VITAL SIGNS: Pulse is 80 per minute and regular, blood pressure 135/86 mmHg, respirations 20 per minute, and temperature 97.5 degrees Fahrenheit. HEAD: Normocephalic and atraumatic. NECK: No neck rigidity was observed. EENT: Benign. NEUROLOGICAL EXAMINATION: MENTAL STATUS EXAMINATION: He was alert and awake. He was oriented to person, place, and time. He was able to recall 3/3 words immediately, but could only remember 2/3 words in 1 minute and 0/3 words in 3 minutes. He was able to remember presidents Trump and Obama spontaneously, but needed hints to remember through President Ramirez senior. His mathematical skills were fairly good. His visuospatial function was preserved. SPEECH: He had mild dysarthria. LANGUAGE: He had an anomia for low and mid frequency words. In addition, he also had significant word-finding problems during spontaneous speech. CRANIAL NERVES EXAMINATION: II: The visual blackman were intact on confrontation testing. III, IV & : The external ocular movements were full and the pupils 3 mm in diameter, equal, round, regular, and reactive to light. V: He had normal facial sensations and the temporales, masseters, and pterygoids functioned normally. VII: He had right VII central facial paresis. VIII: He was able to hear well bilaterally. He did have a few beats of nystagmus when he looked to the right side, however this was fatigable and nonreproducible. IX: The palate moved symmetrically on phonation. X: He had no hoarseness of voice. XI: The sternocleidomastoids and trapezii functioned normally. XII: The tongue was in the midline without any fasciculations or atrophy. MOTOR SYSTEM: The tone was increased on the the right side with a mild degree of spasticity. Examination of muscle mass revealed no focal wasting. Examination of power revealed G 5/5 power except for G 4+/5 power in the right finger extensors and iliopsoas. SENSORY EXAMINATION: He had intact sensations to pinprick, light touch, and graphesthesia. COORDINATION: He performed well on [id number] testing. [id number]-[id number] testing was difficult to perform. REFLEXES: 0 at the biceps, triceps, brachioradialis, knees, and ankles. The plantar response was extensor on the right and flexor on the left. STANCE: He needed support to stand up. GAIT: He walked with right paretic gait with support. DIAGNOSTIC IMPRESSION: 1. Mr. Blade Lara is a 66-year-old, right-handed, gentleman, who does have a past history of hypertension, diabetes mellitus, dyslipidemia, coronary artery disease, and cerebrovascular disease, status post recent stroke, who has had some dizziness following a stroke, however yesterday he had an episode of vertigo, which led to a fall. Since then, he has had a few more episodes of vertigo when he changes his position like turning around in bed or sitting or standing. The episodes of vertigo lasts for a few seconds and then resolve spontaneously. 2. On neurological examination, at this time, he does have problems with recent and remote memory, and fatigable nystagmus when he looks to the right side, a right hemiparesis involving the face, upper and lower extremities, an extensor plantar response on the right side, global areflexia, and a right hemiparetic gait. 3. The CT scan of the brain without contrast revealed atrophy and some deep white matter disease, and in addition, an old left middle cerebral artery territory infarct. No definite acute pathology was noted. 4. Laboratory data obtained thus far revealed a relatively normal CBC. Chemistry panel with elevated blood sugar to 221. Lipid profile with an LDL of 21, HDL of 38, and total cholesterol of 77. Normal TSH. 5. The patient's history, neurological examination, laboratory data, and imaging studies are most compatible with an episode of possible acute vertigo, most probably of the labyrinthine nature. He also demonstrates definite sequelae of an old left brain stroke in the distribution of the left middle cerebral artery territory. It is unclear whether he has had a new cerebrovascular event or not. RECOMMENDATIONS: 1. Agree with management thus far. 2. Continue present treatment for the patient's hypertension, diabetes mellitus, and dyslipidemia. 3. An MRI scan of the brain will be ordered to evaluate the patient for acute intracranial pathology. 4. The patient will be started on Valium 2 mg to be taken at bedtime. 5. Depending on how the patient fares over the next day or so, further recommendations would be given. Thank you for entrusting me with the care of Mr. Lara. I shall follow him with you. Amador Leiva M.D., M.S.P.H. DR: Ozzie JOB#: [id number] MTDD
[2017-02-05 04:01] VITALS: BP 126/71
[2017-02-05 08:00] VITALS: BP 137/85
[2017-02-05 08:31] LABS: TROPONIN I < 0.30 ng/mL (<=0.30)
[2017-02-05] MEDS: Aspirin EC 81mg tab ORAL SCH (10:10)
[2017-02-05] MEDS: Lisinopril 2.5mg tab ORAL SCH ×2 (10:10→17:12)
[2017-02-05] MEDS: Heparin 5000 units/ml inj SUBQ SCH ×2 (10:13→20:36)
--- NOTE | 2017-02-05 10:22 | Diagnostic Imaging Report ---
Indication: Acute CVA. Dizziness. Difficulty walking. Unsteadiness of gait. Technique: The head was imaged in a 1.5 Grace magnet. Sequences obtained include sagittal and axial T1 FLAIR, axial T2 fast spin echo with fat saturation, axial T2 FLAIR, diffusion and ADC map. Comparison: None There is an approximately 1 cm focus of diffusion restriction in the left parietal white matter/dillon radiata adjacent to the left lateral ventricle. There is no associated mass effect or edema. There is no hemorrhage. Several bilateral cystic dillon radiata foci consistent with old small vessel infarcts demonstrated. Associated confluent T2 hyperintense signal noted consistent chronic small vessel disease. Is generalized atrophy the brain is mild. Ventriculomegaly and prominence of basal cisterns also noted. The corpus callosum and sella appear unremarkable. Osseous bone marrow signal appears normal. Impression: Acute 1 cm CVA without associated hemorrhage or mass effect in the left parietal dillon radiata. Multiple old small vessel infarcts and evidence of chronic small disease. Mild atrophy of the brain. Findings conveyed to Dr. Bustos 10:10, 02/05/17
[2017-02-05 12:00] VITALS: BP 127/79
--- NOTE | 2017-02-05 12:34 | Pulmonology Progress Note ---
Assessment/Plan Problems: (1) Acute CVA (cerebrovascular accident) (2) Acute encephalopathy (3) Dizziness of unknown cause (4) Diabetes mellitus (5) History of CVA (cerebrovascular accident) (6) History of hypertension Assessment/Plan MRI reviewed, new CVA echo reviewed, doppler of carotid artery reviewed. dc planning f/u neuro recommendations Subjective ROS Limited/Unobtainable: No Constitutional: Reports: no symptoms HEENT: Repors: no symptoms Respiratory: Reports: no symptoms Cardiovascular: Reports: no symptoms Gastrointestinal/Abdominal: Reports: no symptoms Allergies: Coded Allergies: PENICILLINS (Unverified Allergy, Unknown, 02/03/17) SULFA (SULFONAMIDE ANTIBIOTICS) (Unverified Allergy, Unknown, 02/03/17) Objective Last 24 Hour Vital Signs Date Time Temp Pulse Resp B/P (MAP) Pulse Ox O2 Delivery O2 Flow Rate FiO2 02/05/17 10:42 85 18 Room Air 02/05/17 10:10 137/85 02/05/17 08:00 97.5 66 19 137/85 97 Room Air 02/05/17 06:27 70 83 86 02/05/17 04:01 97.0 60 20 126/71 97 Room Air 02/05/17 03:50 59 02/05/17 00:04 97.9 76 20 139/75 Room Air 02/05/17 00:01 62 02/04/17 20:01 98.0 82 20 125/78 95 Room Air 02/04/17 19:46 93 02/04/17 19:30 78 20 Room Air 21 02/04/17 17:23 135/86 02/04/17 16:00 97.5 79 20 135/86 98 Room Air 02/04/17 16:00 81 General Appearance: WD/WN HEENT: normocephalic, atraumatic Respiratory/Chest: chest wall non-tender, normal breath sounds Cardiovascular: normal peripheral pulses, normal rate Abdomen: normal bowel sounds, soft, non tender Genitourinary: normal external genitalia Extremities: no cyanosis Skin: no rash Laboratory Tests 02/05/17 04:00: Troponin I < 0.30 02/05/17 06:10: Pro-B-Type Natriuretic Peptide 156H Current Medications Medications (Trade) Dose Ordered Sig/Mitch Route PRN Reason Start Time Stop Time Status Last Admin Dose Admin Al Hydroxide/Mg Hydroxide (Mylanta II) 30 ml Q6H PRN ORAL dyspepsia 02/04/17 07:00 03/06/17 06:59 Albuterol/ Ipratropium (DuoNeb 0.5-3(2.5)mg/3ml) 3 ml EVERY 4 HOURS PRN HHN Shortness of Breath 02/04/17 07:00 02/09/17 06:59 Aspirin (Ecotrin) 81 mg DAILY ORAL 02/04/17 09:00 03/06/17 08:59 02/05/17 10:10 Atorvastatin Calcium (Lipitor) 10 mg BEDTIME ORAL 02/04/17 21:00 03/06/17 20:59 02/04/17 21:15 Clonidine HCl (Catapres) 0.1 mg Q4H PRN ORAL For High Blood Pressure 02/04/17 07:00 03/06/17 06:59 Dextrose (Dextrose 50%) STAT PRN IV Hypoglycemia 02/04/17 07:00 03/06/17 06:59 Diazepam (Valium) 2 mg BEDTIME ORAL 02/04/17 21:00 02/11/17 20:59 02/04/17 21:30 Heparin Sodium (Porcine) (Heparin 5000 units/ml) 5,000 units EVERY 12 HOURS SUBQ 02/04/17 09:00 03/06/17 08:59 02/05/17 10:13 Levetiracetam (Keppra) 500 mg EVERY 12 HOURS ORAL 02/04/17 09:00 03/06/17 08:59 02/05/17 10:09 Lisinopril (Zestril) 5 mg BID ORAL 02/04/17 18:00 03/06/17 08:59 02/05/17 10:10 Lorazepam (Ativan 2mg/ml 1ml) 0.5 mg Q4H PRN IV For Anxiety 02/04/17 07:00 02/11/17 06:59 Morphine Sulfate (Morphine Sulfate) 1 mg EVERY 4 HOURS PRN IVP For Pain 7-10 02/04/17 07:00 02/11/17 06:59 Nitroglycerin (Ntg) 0.4 mg Q5M X 3 DOSES PRN SL Prn Chest Pain 02/04/17 07:00 03/06/17 06:59 Ondansetron HCl (Zofran) 4 mg Q6H PRN IVP Nausea & Vomiting 02/04/17 07:00 03/06/17 06:59 Polyethylene Glycol (Miralax) 17 gm HSPRN PRN ORAL Constipation 02/04/17 07:00 03/06/17 06:59 Temazepam (Restoril) 15 mg HSPRN PRN ORAL Insomnia 02/04/17 07:00 02/11/17 06:59 EB MONCADA Feb 05, 2017 12:34
[2017-02-05] MEDS ORDERED: LORazepam Inj 2mg/ml 1ml IV PRN (15:00)
[2017-02-05] MEDS ORDERED: Nitroglycerin Subl 0.4mg tab (Bottle Of 25) SL PRN (15:00)
[2017-02-05] MEDS ORDERED: Miralax 17gm pkt ORAL PRN (15:30)
[2017-02-05] MEDS ORDERED: DuoNeb 0.5-3(2.5)mg/3ml neb HHN PRN (15:30)
[2017-02-05] MEDS ORDERED: Morphine Sulfate 2mg/ml Inj IVP PRN (15:30)
[2017-02-05] MEDS ORDERED: Mylanta II UD 30ml ORAL PRN (15:30)
[2017-02-05 16:00] VITALS: BP 137/88
[2017-02-05] MEDS ORDERED: NovoLOG Insulin Flexpen SUBQ SCH (16:30)
[2017-02-05] MEDS: NovoLOG Insulin Flexpen SUBQ SCH ×2 (16:47→20:34)
[2017-02-05 20:00] VITALS: BP 148/85
--- NOTE | 2017-02-05 20:10 | Neurology Progress Note ---
Interim History Interim History ROS Limited/Unobtainable: No Interim History Mr. Lara feels better today. He has been less vertiginous. He denies any new neurologic symptoms. He specifically denies any increased weakness on on e side or the other, numbness on one side or the other, problems with speech, problems with language or problems with vision. He is depressed and tearful that he has had a new stroke. Review of Systems Neuro Review of Systems Benign. Objective Physical Exam Last Vital Signs Date Time Temp Pulse Resp B/P (MAP) Pulse Ox O2 Delivery O2 Flow Rate FiO2 02/05/17 17:12 137/88 02/05/17 16:00 98.1 77 18 96 Room Air 02/04/17 19:30 21 Laboratory Tests Test 02/05/17 04:00 02/05/17 06:10 Troponin I < 0.30 ng/mL (<=0.30) Pro-B-Type Natriuretic Peptide 156 pg/mL (0-125) H Neurologic Exam Objective PHYSICAL EXAMINATION: GENERAL: He is a well-developed, well-nourished, and pleasant gentleman, lying in bed, in no acute distress. HEAD: Normocephalic and atraumatic. NECK: No neck rigidity was observed. EENT: Benign. NEUROLOGICAL EXAMINATION: MENTAL STATUS EXAMINATION: He was alert and awake. He was oriented to person, place, and time. He was able to recall 3/3 words immediately, but could only remember 2/3 words in 1 minute and 1/3 words in 3 minutes. He was able to remember presidents Trump and Obama spontaneously, but needed hints to remember through President Ramirez senior. His mathematical skills were fairly good. His visuospatial function was preserved. SPEECH: He had mild dysarthria. LANGUAGE: He had an anomia for low and mid frequency words. In addition, he also had significant word-finding problems during spontaneous speech. CRANIAL NERVES EXAMINATION: II: The visual blackman were intact on confrontation testing. III, IV & : The external ocular movements were full and the pupils 3 mm in diameter, equal, round, regular, and reactive to light. V: He had normal facial sensations and the temporales, masseters, and pterygoids functioned normally. VII: He had right VII central facial paresis. VIII: He was able to hear well bilaterally. He did have a few beats of nystagmus when he looked to the right side, however this was fatigable and nonreproducible. IX: The palate moved symmetrically on phonation. X: He had no hoarseness of voice. XI: The sternocleidomastoids and trapezii functioned normally. XII: The tongue was in the midline without any fasciculations or atrophy. MOTOR SYSTEM: The tone was increased on the the right side with a mild degree of spasticity. Examination of muscle mass revealed no focal wasting. Examination of power revealed G 5/5 power except for G 4+/5 power in the right finger extensors and iliopsoas. SENSORY EXAMINATION: He had intact sensations to pinprick, light touch, and graphesthesia. COORDINATION: He performed well on sybrgj-em-nptb testing. Keux-cw-udot testing was difficult to perform. REFLEXES: 0 at the biceps, triceps, brachioradialis, knees, and ankles. The plantar response was extensor on the right and flexor on the left. STANCE: He needed support to stand up. GAIT: He walked with right paretic gait with support. Impression/Recommendations Diagnostic Impression 1. Mr. Blade Lara is a 66-year-old, right-handed, gentleman, who does have a past history of hypertension, diabetes mellitus, dyslipidemia, coronary artery disease, and cerebrovascular disease, status post recent stroke, who has had some dizziness following a stroke, however on 02/03/17 he had an episode of vertigo, which led to a fall. Following that he had a few more episodes of vertigo when he would change his position like turning around in bed or sitting or standing. The episodes of vertigo lasts for a few seconds and then resolve spontaneously. 2. The vertigo is significantly better and he has noted no new neurologic symptoms. 3. On neurological examination, at this time, he does have problems with recent and remote memory, and fatigable nystagmus when he looks to the right side, a right hemiparesis involving the face, upper and lower extremities, an extensor plantar response on the right side, global areflexia, and a right hemiparetic gait. 4. The CT scan of the brain without contrast revealed atrophy and some deep white matter disease, and in addition, an old left middle cerebral artery territory infarct. No definite acute pathology was noted. 5. Laboratory data obtained thus far revealed a relatively normal CBC. Chemistry panel with elevated blood sugar to 221. Lipid profile with an LDL of 21, HDL of 38, and total cholesterol of 77. Normal TSH. 6. The MRI of the brain done on 03/08/17 revealed an acute left parietal dillon radiata infarct, multiple old small vessel infarcts and evidence of chronic small vessel disease with mild atrophy of the brain. 7. The patient's history, neurological examination, laboratory data, and imaging studies are most compatible with an episode of possible acute vertigo, most probably of the labyrinthine nature. 8. He also demonstrates definite sequelae of an old left brain stroke in the distribution of the left middle cerebral artery territory. In addition he has had an acute left parietal centrum semiovale stroke. Recommendations 1. Continue present management. 2. Continue present treatment for the patient's hypertension, diabetes mellitus , and dyslipidemia. 3. Continue Valium 2 mg to be taken at bedtime. 4. Change antiplatelet agent from ASA to Plavix to give patient added secondary stroke prevention benefits. 5. Continue ASA for 5 days until Plavix reaches steady state. Jozef Somers M.D., M.S.P.Rina. JOZEF SOMERS Feb 05, 2017 20:10
[2017-02-06 04:00] VITALS: BP 129/72
[2017-02-06] MEDS: NovoLOG Insulin Flexpen SUBQ SCH ×4 (06:11→21:05)
[2017-02-06 08:40] VITALS: BP 141/99
[2017-02-06] MEDS: Aspirin EC 81mg tab ORAL SCH (08:40)
[2017-02-06] MEDS: Lisinopril 2.5mg tab ORAL SCH ×2 (08:42→18:02)
[2017-02-06] MEDS: Heparin 5000 units/ml inj SUBQ SCH ×2 (08:44→21:04)
[2017-02-06 12:00] VITALS: BP 120/73
[2017-02-06] MEDS ORDERED: PLAVIX75 MG ORAL (16:38)
[2017-02-06 16:45] VITALS: BP 146/79
[2017-02-06 20:00] VITALS: BP 136/83
--- NOTE | 2017-02-06 21:52 | Neurology Progress Note ---
Interim History Interim History Interim History Mr. Lara feels better today. He has has had no significant vertigo today. He denies any new neurologic symptoms. He specifically denies any increased weakness on on e side or the other, numbness on one side or the other, problems with speech, problems with language or problems with vision. He is in better spirits. Review of Systems Neuro Review of Systems Benign. Objective Physical Exam Last Vital Signs Date Time Temp Pulse Resp B/P (MAP) Pulse Ox O2 Delivery O2 Flow Rate FiO2 02/06/17 20:00 98.1 92 17 136/83 97 Room Air 02/06/17 19:12 21 Neurologic Exam Objective PHYSICAL EXAMINATION: GENERAL: He is a well-developed, well-nourished, and pleasant gentleman, lying in bed, in no acute distress. HEAD: Normocephalic and atraumatic. NECK: No neck rigidity was observed. EENT: Benign. NEUROLOGICAL EXAMINATION: MENTAL STATUS EXAMINATION: He was alert and awake. He was oriented to person, place, and time. He was able to recall 3/3 words immediately, and could remember them in 1 and 3 minutes. He was able to remember presidents Trump and Obama spontaneously, but needed hints to remember through President Ramirez senior. His mathematical skills were fairly good. His visuospatial function was preserved. SPEECH: He had mild dysarthria. LANGUAGE: He had an anomia for low and mid frequency words. In addition, he also had significant word-finding problems during spontaneous speech. CRANIAL NERVES EXAMINATION: II: The visual blackman were intact on confrontation testing. III, IV & : The external ocular movements were full and the pupils 3 mm in diameter, equal, round, regular, and reactive to light. V: He had normal facial sensations and the temporales, masseters, and pterygoids functioned normally. VII: He had right VII central facial paresis. VIII: He was able to hear well bilaterally. He had no nystagmus. IX: The palate moved symmetrically on phonation. X: He had no hoarseness of voice. XI: The sternocleidomastoids and trapezii functioned normally. XII: The tongue was in the midline without any fasciculations or atrophy. MOTOR SYSTEM: The tone was increased on the the right side with a mild degree of spasticity. Examination of muscle mass revealed no focal wasting. Examination of power revealed G 5/5 power except for G 4++/5 power in the right finger extensors and iliopsoas. SENSORY EXAMINATION: He had intact sensations to pinprick, light touch, and graphesthesia. COORDINATION: He performed well on wejsma-ae-xnkw testing. Mgcc-ou-pdcj testing was difficult to perform. REFLEXES: 0 at the biceps, triceps, brachioradialis, knees, and ankles. The plantar response was extensor on the right and flexor on the left. STANCE: He stood up with contact guard. GAIT: He walked with right paretic gait with contact guard. Impression/Recommendations Diagnostic Impression 1. Mr. Blade Lara is a 66-year-old, right-handed, gentleman, who does have a past history of hypertension, diabetes mellitus, dyslipidemia, coronary artery disease, and cerebrovascular disease, status post recent stroke, who has had some dizziness following a stroke, however on 02/03/17 he had an episode of vertigo, which led to a fall. Following that he had a few more episodes of vertigo when he would change his position like turning around in bed or sitting or standing. The episodes of vertigo lasts for a few seconds and then resolve spontaneously. 2. The has been free of any significant and he has noted no new neurologic symptoms. 3. On neurological examination, at this time, he does have mild problems with memory. The nystagmus has resolved.completely. He does have a right hemiparesis involving the face, upper and lower extremities, an extensor plantar response on the right side, global areflexia, and a right hemiparetic gait. 4. The CT scan of the brain without contrast revealed atrophy and some deep white matter disease, and in addition, an old left middle cerebral artery territory infarct. No definite acute pathology was noted. 5. Laboratory data obtained thus far revealed a relatively normal CBC. Chemistry panel with elevated blood sugar to 221. Lipid profile with an LDL of 21, HDL of 38, and total cholesterol of 77. Normal TSH. 6. The MRI of the brain done on 03/08/17 revealed an acute left parietal dillon radiata infarct, multiple old small vessel infarcts and evidence of chronic small vessel disease with mild atrophy of the brain. 7. The patient's history, neurological examination, laboratory data, and imaging studies are most compatible with an episode of labyrinthine vertigo which is now resolving. 8. He also demonstrates definite sequelae of an old left brain stroke. In addition he has had an acute left parietal centrum semiovale stroke. Recommendations 1. Continue present management. 2. Continue present treatment for the patient's hypertension, diabetes mellitus , and dyslipidemia. 3. Continue Valium 2 mg to be taken at bedtime. 4. Plavix 75 mg q day. 5. Continue ASA for 5 days until Plavix reaches steady state. 6. Follow up with neurologist in ~ 1 month. Jozef Somers M.D., M.S.P.Rina. JOZEF SOMERS Feb 06, 2017 21:52
[2017-02-07 04:00] VITALS: BP 138/82
[2017-02-07] MEDS: NovoLOG Insulin Flexpen SUBQ SCH ×2 (05:58→11:30)
[2017-02-07 08:10] VITALS: BP 124/73
[2017-02-07 08:29] VITALS: BP 124/73
[2017-02-07] MEDS: Lisinopril 2.5mg tab ORAL SCH (08:29)
[2017-02-07] MEDS: Aspirin EC 81mg tab ORAL SCH (08:29)
[2017-02-07] MEDS: Heparin 5000 units/ml inj SUBQ SCH (08:36)
[2017-02-07 10:29] LABS: VITAMIN D 25-OH TOTAL 25 ng/mL (.)
--- NOTE | 2017-02-07 13:35 | Pulmonology Progress Note ---
Assessment/Plan Problems: (1) Acute CVA (cerebrovascular accident) (2) Acute encephalopathy (3) Dizziness of unknown cause (4) Diabetes mellitus (5) History of CVA (cerebrovascular accident) (6) History of hypertension Assessment/Plan no new complains MRI reviewed,new CVA echo reviewed, doppler of carotid artery reviewed. dc planning f/u neuro recommendations Subjective ROS Limited/Unobtainable: No Constitutional: Reports: no symptoms HEENT: Repors: no symptoms Respiratory: Reports: no symptoms Cardiovascular: Reports: no symptoms Allergies: Coded Allergies: PENICILLINS (Unverified Allergy, Unknown, 02/03/17) SULFA (SULFONAMIDE ANTIBIOTICS) (Unverified Allergy, Unknown, 02/03/17) Objective Last 24 Hour Vital Signs Date Time Temp Pulse Resp B/P (MAP) Pulse Ox O2 Delivery O2 Flow Rate FiO2 02/07/17 09:00 77 81 86 02/07/17 08:29 124/73 02/07/17 08:10 96.4 77 18 124/73 95 Room Air 02/07/17 04:00 97.6 86 18 138/82 94 Room Air 02/06/17 20:00 98.1 92 17 136/83 97 Room Air 02/06/17 19:12 79 18 Room Air 21 02/06/17 18:02 134/84 02/06/17 16:45 98.1 20 146/79 100 Room Air Intake and Output 02/07/17 02/08/17 19:00 07:00 Intake Total 240 ml Balance 240 ml Intake Oral 240 ml # Voids 2 General Appearance: WD/WN, no acute distress HEENT: normocephalic Respiratory/Chest: lungs clear, no respiratory distress Cardiovascular: normal peripheral pulses, regular rhythm Extremities: no cyanosis, no clubbing Skin: no lesions EB MONCADA Feb 07, 2017 13:35
--- NOTE | 2017-02-10 21:16 | Discharge Summary ---
Discharge Summary Hospital Course Date of Admission Feb 03, 2017 at 23:53 Date of Discharge Feb 07, 2017 at 11:55 Admitting Diagnosis DIZZINESS HPI Blade Lara is a 66 year old male who was admitted on Feb 03, 2017 at 23:53 for Dizziness Hospital Course dc summary #[id number] Discharge Medications New Medications: Clopidogrel Bisulfate* (Plavix*) 75 Mg Tablet 75 MG ORAL DAILY for 30 Days, TAB Continued Medications: Aspirin* (Aspir 81*) 81 Mg Tablet.dr 81 MG ORAL DAILY, TAB Atorvastatin Calcium* (Lipitor*) 10 Mg Tablet 10 MG ORAL BEDTIME, TAB Levetiracetam (Keppra) 500 Mg Tablet 500 MG ORAL EVERY 12 HOURS, #60 TAB 0 Refills Lisinopril (Lisinopril*) 5 Mg Tablet 5 MG ORAL DAILY, TAB Discharge Condition Upon Discharge: stable Discharge Disposition Patient was discharged to Home with Home Health(06) Discharge Diagnoses: Discharge Instructions Discharge Instructions Special Instructions I have been assigned to complete a D/C Summary on this account. I was not involved in the patient management Margarita Christiansen NP (Vanchtein) Feb 10, 2017 21:16
--- NOTE | 2017-02-11 10:34 | Discharge Summary 2 SIG ---
DATE OF ADMISSION: 02/03/2017 DATE OF DISCHARGE: 02/07/2017 REASON FOR ADMISSION: 66-year-old male with past medical history significant for diabetes, hypertension, CVA, and seizure disorder, presented with a chief complaint of dizziness. No focal deficits. No chest pain. Workup in the emergency room revealed WBC -11.7. Stable hemoglobin and hematocrit. Stable electrolytes. Troponin negative. Glucose -294. EKG revealed normal sinus rhythm. No acute changes. Chest x-ray revealed no acute cardiopulmonary pathology. CT of the head revealed no acute intracranial pathology, but was consistent with moderate atrophy of the brain and disproportionate ventriculomegaly as well as evidence of chronic small vessel disease involving white matter tracts. The patient was admitted for further management. ADMITTING DIAGNOSES: 1. Acute encephalopathy. 2. Dizziness of unknown cause. 3. Hyperglycemia. 4. Diabetes mellitus. 5. History of cerebrovascular accident. 6. Hypertension. 7. Coronary artery disease with history of myocardial infarction and coronary artery bypass graft. 8. Seizure disorder. HOSPITAL COURSE: The patient was admitted to telemetry floor. Neurology and Cardiology consults were requested. Serial troponin x2 were negative. EKG revealed sinus rhythm. No acute ischemic changes. Echocardiogram revealed preserved ejection fraction of 55% to 60% . The patient was ruled out for acute IN. No evidence of arrhythmia. Lipid panel was within normal limits. Statin was continued. Blood pressure was managed with current regimen and was stable. Coning Machine Operator recommended to avoid strict blood pressure control to help with patient balance. Orthostatic vital signs were checked. No evidence of orthostasis. No symptoms to suggest CHF. No coronary syndromes. Neurology consult was requested as well. Neurologist ordered MRI of the brain. At the same time, he started the patient on Valium at nighttime. Seizure precautions were maintained . MRI of the brain revealed acute 1 cm CVA without associated hemorrhage or mass effect in the left parietal dillon radiata, mild atrophy of the brain, multiple old small vessel infarcts, and evidence of chronic small disease. Carotid duplex was essentially negative. The patient was started on Plavix and continue aspirin for five days for Plavix to reach desired effect. Per Neurology, the patient's history and neurological examination along with laboratory and imaging data were most compatible with episodes of labyrinthine vertigo, which i=was resolving. The patient also demonstrated old left brain stroke and had new acute left parietal centrum semiovale stroke. Recommended to follow up with neurologist in one month. The patient was working with physical and occupational therapists. Blood sugar was managed with sliding scale of insulin. Hemoglobin A1c -7.6, needs tighter control of blood sugar as an outpatient. The patient was seen by urologist. Apparently, the patient was not able to void in the emergency room. Urology consult was requested. However patient voided prior to coming to ED, then upon admission on the floor, and then next morning. His mild lower urinary tract symptoms had not significantly bothered him . Per urology, patient voiding well, not likely neurogenic bladder , likely baseline benign prostatic hypertrophy symptoms, which did not require emergent interventions. Urologist recommended outpatient followup . The patient was stable for discharge. DISCHARGE DIAGNOSES: 1. Labyrinthine vertigo, resolving. 2. Acute left parietal centrum semiovale stroke. 3. History of old left cerebrovascular accident. 4. Acute encephalopathy, resolved. 5. Hypertension. 6. Diabetes mellitus. 7. Coronary artery disease with history of myocardial infarction and coronary artery bypass graft. 8. Seizure disorder. 9. Possible benign prostatic hypertrophy. DISCHARGE MEDICATIONS: See medication reconciliation list. DISCHARGE INSTRUCTIONS: The patient was discharged home with home health services for PT/OT services. FOLLOWUP: Follow up with primary medical doctor for tighter blood sugar control. Follow up with neurologist in one month. Mary Bustos M.D. I have been assigned to dictate discharge summary on this account and I was not involved in the patient's management. Margarita Garciakelvin N.PCarolin DR: ARBEN JOB#: [id number] CC: JATIN
--- NOTE | 2017-02-12 17:03 | Cardiology Report ---
APPROVED REPORT EKG Measurement Heart [id number] Normal sinus rhythm Left axis deviation Pulmonary disease pattern Moderate voltage criteria for LVH, may be normal variant Abnormal ECG
== END 2017-02-07 11:55 | disposition home health service (06) | DRG 64 ==
LOC: EDBD 21:39 → EMR 21:54 → 2E 23:53 → EDBEDREQ 02-04 01:28 → 2E 02-05 05:32 → 4W 02-05 15:21
DX: I63.9 Cerebral infarction, unspecified (principal); G93.40 Encephalopathy, unspecified; E11.65 Type 2 diabetes mellitus with hyperglycemia; G93.89 Other specified disorders of brain; I10 Essential (primary) hypertension; I25.2 Old myocardial infarction; I25.10 Atherosclerotic heart disease of native coronary artery without angina pectoris; R26.9 Unspecified abnormalities of gait and mobility; N40.0 Benign prostatic hyperplasia without lower urinary tract symptoms; H81.09 Meniere's disease, unspecified ear; G40.909 Epilepsy, unspecified, not intractable, without status epilepticus; Z79.82 Long term (current) use of aspirin; Z88.0 Allergy status to penicillin; Z88.2 Allergy status to sulfonamides; Z95.1 Presence of aortocoronary bypass graft; Z86.73 Personal history of transient ischemic attack (TIA), and cerebral infarction without residual deficits
CPT/HCPCS: 36415; 70450; 70551; 71010; 80053; 80061; 80299; 82306; 82550; 82553; 82607; 82746; 82962; 83036; 83880; 84153; 84443; 84484; 85025; 85610; 85651; 85730; 86592; 93005; 93306; 93880; 94664; 99285; J1815; J2405